=== PATIENT | female | born 1955 | race Hispanic/Latino ===

== ENCOUNTER 2025-09-11 06:33 | Emergency (ER) | payer BC, OTHER ==
[~2025-09-11] VITALS: Ht 154.9 cm; Wt 81.6 kg
--- NOTE | 2025-09-11 07:04 | NUR ---
REPORT GIVEN TO JOSÉ MIGUEL RN AT THIS TIME
--- NOTE | 2025-09-11 07:20 | ERN ---
General Chief Complaint: FOOT INJURY/PAIN Stated Complaint: RIGHT FOOT INJURY,ABRASION WITH RUSTED METAL Time Seen by MD: 07:14 Source: patient History of Present Illness Initial Comments Patient is a 70-year-old female coming in complaining right foot discomfort per patient she has been washing which has been little sharp bottom. She states that the sharp on the scraped right she states that her daughter was in his her patient has been tenderness she could not remembers so she in his has a come in to has a foot evaluated and see if she needs her tetanus. Past Medical History Past Medical History: Hypertension, Hypothyroid Past Surgical History: None ROS Dictation CONSTITUTIONAL: No chills, no fever, no weakness, no diaphoresis, no malaise. HEAD/FACE: No signs of trauma. EENT: No eye pain, no blurred vision, no tearing, no double vision, no ear pain, no ear discharge, no nose pain, no nasal congestion, no throat pain, no th roat swelling, no mouth pain. RESPIRATORY: No cough, no orthopnea, no SOB, no stridor, no wheezing. CARDIOVASCULAR: No chest pain, no edema, no palpitations, no syncope. GASTROINTESTINAL/ABDOMINAL: No abdominal pain, no constipation, no diarrhea, no nausea, no vomiting. GENITOURINARY: No abnormal discharge, no dysuria, no frequent urination, no hematuria. No complaints of pain in the genitals. MUSCULOSKELETAL: No back pain, no gout, no joint pain, no joint swelling, no muscle pain, no muscle stiffness, no neck pain. INTEGUMENTARY: No change in color, no change in hair/nails, no dryness, lesion, no lumps, no rash. NEUROLOGICAL/PSYCH: No anxiety, not depressed, no emotional problem, no headache, no numbness, no pre-existing deficit, no history of seizures, no tremors, no weakness. HEMATOLOGIC/LYMPHATIC: Not anemic, no history of blood clots, no apparent bleeding, no bruising, glands not swollen. All Systems Negative, Except as Noted. Physical Exam Physical Exam Dictation VITAL SIGNS: Reviewed. GENERAL APPEARANCE: Alert, oriented x3, no acute distress, obese. HEAD AND FACE: Non-traumatic. EYES: PERRL, pink conjunctivas, eyelid no trauma, anterior chamber clear. EARS: Pinnas intact and no signs of trauma or erythema. Ear canals clear and no discharge. TMs no erythema. NOSE: No discharge, no bleeding. OROPHARYNX: Mouth normal, teeth no caries, tongue pink. Pharynx clear, no erythema. Tonsils no exudates, no abscesses noted. Mucous membrane moist. NECK: Supple, non-tender, no thyromegaly, no masses, no JVD, no bruits. BREAST: Deferred. CHEST: No tenderness, no crepitus, no paradoxical movement, no retractions. LUNGS: Clear, well-ventilated, symmetric, no rales, no wheezing, no rhonchi, no stridor, good breath sounds bilaterally. HEART: Regular rate, regular rhythm, no murmur, no gallops. VASCULAR: No peripheral edema. ABDOMEN: Soft, positive bowel sounds, nondistended, no guarding, nontender, no rebound, no masses no hepatomegaly, no splenomegaly, no Shay's sign, no hernias. RECTAL: Deferred. GENITAL: Deferred. NEUROLOGICAL: Normal speech, gross motor function intact, gross sensory function intact. MUSCULOSKELETAL: Neck nontender, full range of motion, back nontender, full range of motion. EXTREMITIES: Nontender, full range of motion. SKIN: Color pink, dry, no turgor, no rash, no lacerations, right foot abrasion between 1st and 2nd toe, no contusions. LYMPHATICS: Deferred. Results Laboratory and Microbiology Labs Reviewed?: Yes EKG/XRAY/US/CT/MRI X-RAY Comment xray rt foot- nad MDM MDM: Differential diagnosis:foot contusion, foot abrasion Rationale: Tests considered and ordered secondary to shared decision making include: Previous outside records reviewed: Old ER visits. Risk of complication and/or morbidity or mortality of patient management: None Medications-Per medication reconciliation Need for hospitalization: Patient does not meet criteria for hospitalization. Need for emergency major/minor surgery: No There are no social concerns with this patient. Patient is a 70-year-old female coming in to be evaluated for right foot pain. Patient states he was moving a washing scraped with a metal piece. She was concerned because she has swelling of her foot and has not had her tetanus vaccine in some time. X-ray did not disclose acute findings abrasion was cleaned antibiotics will be prescribed. Patient will be discharged in stable condition with a diagnosis of contusion with the foot abrasion. ED Course Orders Procedure Category Date Status Time Foot Comp 3+Vws Rt RAD 09/11/25 Taken 06:56 Tetanus,Diphtheria PHA 09/11/25 Logged Tox [Adult] (Diphther 07:00 Ketorolac PHA 09/11/25 Logged Tromethamine 30mg/Ml 07:00 Current Medications Medications (Trade) Dose Ordered Sig/Franny Route PRN Reason Start Time Stop Time Status Last Admin Dose Admin Ketorolac Tromethamine (toRADol) 30 mg ONCE ONCE IM 09/11/25 07:00 09/11/25 07:01 UNV Tetanus/ Diphtheria Toxoids Adsorbed (DiphthERIA-teTANUS TOXOID [ADULT]/ DECAVAC) 0.5 ml ONCE ONCE IM 09/11/25 07:00 09/11/25 07:01 UNV Vital Signs Date Time Temp Pulse Resp B/P (MAP) Pulse Ox O2 Delivery O2 Flow Rate FiO2 09/11/25 06:57 98.1 49 16 125/65 98 Room Air* 0 21 09/11/25 06:36 98.1 51 16 155/81 99 Room Air 0 DX & DISP Disposition: Discharge Departure Impression: Primary Impression: Contusion of foot, right Additional Impression: Foot abrasion Condition: Stable Scripts Cephalexin Monohydrate (Keflex) 500 Mg Cap 1 CAP PO TID for 10 Days, #30 CAP 0 Refills Prov: ZARINA ROBB MD 09/11/25 Additional Instructions: FOLLOW-UP WITH PRIMARY CARE PROVIDER IN 1 TO 2 DAYS. TAKE MEDICATIONS DIRECTED HERE IN THE EMERGENCY ROOM. OKAY TO CONTINUE HOME MEDICATIONS UNLESS OTHERWISE DISCUSSED DURING YOUR VISIT IN THE EMERGENCY ROOM TODAY. RETURN TO YOUR NEAREST EMERGENCY ROOM IF SYMPTOMS WORSEN OR IF THERE IS NO IMPROVEMENT. CALL 911 IF YOU NEED IMMEDIATE ASSISTANCE. TAKE TYLENOL HIND-[id number] NEEDED AND IF NO CONTRAINDICATIONS ARE PRESENT. INCREASE ORAL HYDRATION. A WOUND CULTURE OR URINE CULTURE WAS ORDERED HERE IN THE EMERGENCY ROOM DEPARTMENT PLEASE FOLLOW-UP WITH PRIMARY CARE PROVIDER AND ADVISE THEM TO GET REPORTS FROM OUR FACILITY. IF YOU HAD ANY LIOR WRAP/SPLINTS THAT WERE APPLIED HERE, PLEASE DO NOT REMOVE THEM UNTIL YOU SEE YOUR PRIMARY CARE OR SPECIALTY. Referrals: Referrals: LAMONT HENDERSON MD (PCP) Time of Disposition: 07:58 ZARINA ROBB MD Sep 11, 2025 07:20
[2025-09-11] MEDS ORDERED: CEPH500B PO (07:58)
--- NOTE | 2025-09-11 08:25 | HMCIMG ---
EXAM: CR right foot, 3 View. CLINICAL HISTORY: injury with metal object/ pain and swelling. COMPARISON: None provided. FINDINGS: BONES: No acute fracture or aggressive appearing osseous lesion. There is a large calcaneal spur JOINTS: The joint spaces appear within normal limits. No dislocation. SOFT TISSUES: The soft tissues are unremarkable. IMPRESSION: No acute osseous abnormality. /[place]
[2025-09-11 08:40] VITALS: BP 135/66; PULSE 45; RESP 19; TEMP 98.5; O2SAT 98
--- NOTE | 2025-09-11 08:51 | NUR ---
DC PATIENT WAS DC'D BY DR ROBB I EXPLAINED TO PATIENT TO FOLLOW UP WITH PCP, PROVIDED INFO BASED ON DIAGNOSIS, PRESCRIPTIONS AND ANSWERED ANY FOLLOW UP QUESTIONS PATIENT AMBULATED OUT OF ED, NO COMPLICATIONS
== END 2025-09-11 08:50 | disposition home or self-care (01) ==
LOC: EDH 06:33
DX: S90.31XA Contusion of right foot, initial encounter (principal); S90.811A Abrasion, right foot, initial encounter; E03.9 Hypothyroidism, unspecified; I10 Essential (primary) hypertension; X58.XXXA Exposure to other specified factors, initial encounter; Y93.89 Activity, other specified; Y92.89 Other specified places as the place of occurrence of the external cause; Y99.8 Other external cause status
CPT/HCPCS: 99284; 90714; 73630; 96372; 90471; J1885